=== PATIENT | female | born 1980 ===

== ENCOUNTER 2020-05-31 13:41 | Outpatient (CLI) | payer OTHER | END 2020-05-31 14:39 | disposition HB | LOC: MAMO-SONO 13:41 | DX: N60.02 Solitary cyst of left breast (principal); N60.01 Solitary cyst of right breast; N64.59 Other signs and symptoms in breast ==

== ENCOUNTER 2021-07-18 08:25 | Outpatient (CLI) | payer OTHER | END 2021-07-18 08:38 | disposition home or self-care (01) | LOC: MAMO-SONO 08:25 | PROVIDERS: ATTEND Obstetrics & Gynecology | DX: Z12.31 Encounter for screening mammogram for malignant neoplasm of breast (principal); N64.2 Atrophy of breast ==

== ENCOUNTER 2023-03-05 08:46 | Outpatient (CLI) | payer OTHER | END 2023-03-05 08:52 | disposition home or self-care (01) | LOC: MAMO-SONO 08:46 | PROVIDERS: ATTEND Obstetrics & Gynecology | DX: Z12.31 Encounter for screening mammogram for malignant neoplasm of breast (principal); N60.11 Diffuse cystic mastopathy of right breast; N60.12 Diffuse cystic mastopathy of left breast ==

== ENCOUNTER 2023-11-15 08:41 | Outpatient (CLI) | payer OTHER | END 2023-11-15 08:54 | disposition home or self-care (01) | LOC: TOM 08:41 | PROVIDERS: ATTEND Internal Medicine | DX: R05.9 Cough, unspecified (principal); R06.02 Shortness of breath; K86.1 Other chronic pancreatitis ==

== ENCOUNTER 2024-01-29 10:39 | Outpatient (CLI) | payer OTHER | END 2024-01-29 10:45 | disposition home or self-care (01) | LOC: SONOGRAMA 10:39 | PROVIDERS: ATTEND Internal Medicine | DX: E04.9 Nontoxic goiter, unspecified (principal) ==

== ENCOUNTER 2024-01-30 10:20 | Outpatient (CLI) | payer OTHER | END 2024-01-30 10:23 | disposition home or self-care (01) | LOC: SONOGRAMA 10:20 | PROVIDERS: ATTEND Chiropractor Neurology | DX: M77.32 Calcaneal spur, left foot (principal) ==